=== PATIENT | male | born 1960 | race Caucasian/White ===

== ENCOUNTER 2016-12-12 19:00 | Inpatient (IN) | payer BC ==
[~2016-12-12] VITALS: Ht 172.7 cm; Wt 121.2 kg
[2016-12-12 20:49] VITALS: BP 142/60; PULSE 80; TEMP 98.3
[2016-12-12] MEDS ORDERED: PRAVACHOL 40MG40 MG PO (21:06)
[2016-12-12] MEDS ORDERED: VERAPAMIL180 MG/TAB PO (21:08)
[2016-12-12] MEDS ORDERED: COREG 6.256.25 MG/TA PO (21:10)
[2016-12-12] MEDS ORDERED: CARDURA 2MG2 MG PO (21:11)
[2016-12-12] MEDS ORDERED: LASIX 20MG TABL20 MG PO (21:12)
[2016-12-12] MEDS ORDERED: LIORESAL 1010 MG/TAB PO (21:13)
[2016-12-12] MEDS ORDERED: ASPIRIN 81M81 MG/TA2 PO (21:14)
[2016-12-12] MEDS ORDERED: OXAYDO7.5 MG PO (21:16)
[2016-12-12] MEDS ORDERED: HYZAAR 12.5 MG-1 TAB PO (21:18)
[2016-12-12] MEDS ORDERED: HCTZ 25MG TAB25 MG PO (21:18)
[2016-12-12] MEDS ORDERED: TENORMIN 2525 MG/TAB PO (21:19)
[2016-12-12] MEDS ORDERED: VOLTAREN 50MG T50 MG PO (21:21)
[2016-12-12] MEDS ORDERED: LOVENOX 4040 MG/0.4 SQ (21:22)
[2016-12-12] MEDS ORDERED: ROXICODONE 55 MG/TAB PO (21:23)
[2016-12-12] MEDS ORDERED: FLAGYL 500500 MG/100 IV (21:24)
[2016-12-12] MEDS ORDERED: CIPROFLOXA400 MG/202 IV (21:25)
[2016-12-12] MEDS ORDERED: ZOFRAN INJ4 MG/2 ML IV (21:26)
[2016-12-12] MEDS ORDERED: REGLAN 10M10 MG/2 ML IV (21:27)
[2016-12-12] MEDS ORDERED: DILAUDID 2MG/2 MG/M1 IV (21:28)
[2016-12-13 02:36] VITALS: BP 131/50; PULSE 69; TEMP 98.6
[2016-12-13 04:43] VITALS: BP 137/53; PULSE 73; TEMP 98.9
[2016-12-13 07:36] LABS: MEAN CELL VOLUME 98 fl (80.0-100.0); MEAN CORPUSCULAR HGB CONC 32 g/dl (33.0-37.0); PLATELET COUNT 334 K/mm3 (130-400); RED BLOOD COUNT 2.94 M/mm3 (4.20-5.60); REDCELL DISTRIBUTION WIDTH-CV 13.2 % (11.5-14.5); WHITE BLOOD COUNT 10.3 K/mm3 (4.8-10.8)
[2016-12-13 07:38] LABS: HEMATOCRIT 28.9 % (42.0-52.0); HEMOGLOBIN 9.2 g/dl (13.5-18.0); MEAN CORPUSCULAR HEMOGLOBIN 31 pg (27.0-31.0)
[2016-12-13 07:55] LABS: CALCIUM 8.6 mg/dL (8.4-10.2); CREATININE, serum 0.97 mg/dL (0.66-1.25); MAGNESIUM 1.8 mg/dL (1.6-2.3); PHOSPHOROUS 4.4 mg/dL (2.5-4.5)
[2016-12-13 10:29] VITALS: BP 106/41; PULSE 57; TEMP 96.8
[2016-12-13 13:38] VITALS: BP 104/46; PULSE 76; TEMP 98.1
[2016-12-13 22:33] VITALS: BP 102/48; PULSE 52; TEMP 98.2
[2016-12-14 02:12] VITALS: BP 112/42; PULSE 55; TEMP 98.3
[2016-12-14 05:11] VITALS: BP 112/50; PULSE 53; TEMP 98.1
[2016-12-14 10:14] VITALS: BP 95/45; PULSE 49; TEMP 98
[2016-12-14 13:36] VITALS: BP 109/45; PULSE 44
[2016-12-14 15:02] LABS: MEAN CELL VOLUME 98 fl (80.0-100.0); MEAN CORPUSCULAR HGB CONC 32 g/dl (33.0-37.0); MEAN PLATELET VOLUME 10.5 fl (7.4-10.4); PLATELET COUNT 376 K/mm3 (130-400); RED BLOOD COUNT 3.08 M/mm3 (4.20-5.60); WHITE BLOOD COUNT 10.3 K/mm3 (4.8-10.8)
[2016-12-14 15:07] LABS: HEMATOCRIT 30.3 % (42.0-52.0); HEMOGLOBIN 9.7 g/dl (13.5-18.0); MEAN CORPUSCULAR HEMOGLOBIN 31 pg (27.0-31.0)
[2016-12-14 15:25] LABS: CALCIUM 8.9 mg/dL (8.4-10.2); CREATININE, serum 0.9 mg/dL (0.66-1.25)
[2016-12-14 16:02] LABS: ADD PATHOLOGY DIFF REVIEW YES; BAND 16 % (0-10); EOSINOPHIL 4 % (0-4); METAMYELOCYTE 2 % (0-0); NEUTROPHILS 58 % (42.0-75.2); PLATELET ESTIMATE NORMAL (NORMAL); TOTAL CELLS COUNTED 100
[2016-12-14 17:41] VITALS: BP 117/53; PULSE 47; TEMP 98.4
[2016-12-14 22:25] VITALS: BP 110/56; PULSE 52; TEMP 98.2
[2016-12-15 05:30] VITALS: BP 126/50; PULSE 56; TEMP 98.1
[2016-12-15 07:30] VITALS: BP 129/59; PULSE 59; TEMP 98
[2016-12-15 08:29] LABS: PATHOLOGY DIFF REVIEW OK
[2016-12-15 08:38] LABS: MEAN CELL VOLUME 100 fl (80.0-100.0); MEAN CORPUSCULAR HGB CONC 31 g/dl (33.0-37.0); MEAN PLATELET VOLUME 10.5 fl (7.4-10.4); PLATELET COUNT 361 K/mm3 (130-400); RED BLOOD COUNT 2.99 M/mm3 (4.20-5.60); REDCELL DISTRIBUTION WIDTH-CV 12.8 % (11.5-14.5); WHITE BLOOD COUNT 8.7 K/mm3 (4.8-10.8)
[2016-12-15 08:57] LABS: HEMATOCRIT 29.9 % (42.0-52.0); HEMOGLOBIN 9.4 g/dl (13.5-18.0); MEAN CORPUSCULAR HEMOGLOBIN 31 pg (27.0-31.0)
[2016-12-15 09:10] LABS: ADJUSTED CALCIUM 9.6 mg/dL (8.4-10.2); ALBUMIN 2.9 gm/dL (3.5-5.0); BILIRUBIN,TOTAL 0.4 mg/dL (0.0-1.0); CALCIUM 8.7 mg/dL (8.4-10.2); CREATININE, serum 0.85 mg/dL (0.66-1.25); POTASSIUM 3.6 mmol/L (3.4-5.0)
[2016-12-15 10:29] VITALS: BP 118/37; PULSE 60; TEMP 97.9
[2016-12-15 13:16] VITALS: BP 117/56; PULSE 57; TEMP 97.7
[2016-12-15 17:31] VITALS: BP 136/53; PULSE 62; TEMP 98.1
[2016-12-15 22:17] VITALS: BP 149/53; PULSE 61; TEMP 98.5
[2016-12-16 06:03] VITALS: BP 145/51; PULSE 61; TEMP 98.6
[2016-12-16 10:00] VITALS: BP 168/70; PULSE 66; TEMP 98.2
[2016-12-16 13:38] VITALS: BP 154/49; PULSE 66; TEMP 98.5
[2016-12-16 17:23] VITALS: BP 142/55; PULSE 54; TEMP 98.1
[2016-12-16 20:38] VITALS: BP 150/52; PULSE 59; TEMP 98.2
[2016-12-17 01:36] VITALS: BP 150/53; PULSE 60; TEMP 98.5
[2016-12-17 05:04] VITALS: BP 158/64; PULSE 62; TEMP 98.3
[2016-12-17 07:53] LABS: BASO # 0.1 (0.0-0.2); BASO % 0.7 % (0.0-2.0); EOS # 0.3 (0.0-0.7); EOS % 2.7 % (0-4.0); GRAN # 5.3 (1.4-6.5); GRAN % 57.7 % (42.2-75.2); LYMPH # 2.3 (1.2-3.4); LYMPH % 24.5 % (20.0-51.0); MEAN CELL VOLUME 100 fl (80.0-100.0); MEAN CORPUSCULAR HGB CONC 32 g/dl (33.0-37.0); MEAN PLATELET VOLUME 10.8 fl (7.4-10.4); MONO % 10.4 % (1.7-9.3); PLATELET COUNT 379 K/mm3 (130-400); RED BLOOD COUNT 2.79 M/mm3 (4.20-5.60); REDCELL DISTRIBUTION WIDTH-CV 12.8 % (11.5-14.5); WHITE BLOOD COUNT 9.2 K/mm3 (4.8-10.8)
[2016-12-17 08:00] LABS: ADJUSTED CALCIUM 9.7 mg/dL (8.4-10.2); ALBUMIN 2.8 gm/dL (3.5-5.0); BILIRUBIN,TOTAL 0.3 mg/dL (0.0-1.0); CALCIUM 8.7 mg/dL (8.4-10.2); CREATININE, serum 0.79 mg/dL (0.66-1.25); POTASSIUM 3.8 mmol/L (3.4-5.0); TOTAL PROTEIN 5.6 gm/dL (6.4-8.2)
[2016-12-17 08:19] LABS: HEMATOCRIT 27.9 % (42.0-52.0); HEMOGLOBIN 8.9 g/dl (13.5-18.0); MEAN CORPUSCULAR HEMOGLOBIN 32 pg (27.0-31.0)
[2016-12-17 10:00] VITALS: BP 153/49; PULSE 63; TEMP 98.1
[2016-12-17] MEDS ORDERED: CLEOCIN HCL300 MG PO (10:39)
[2016-12-17] MEDS ORDERED: CIPRO 500MG TA500 MG PO (10:39)
[2016-12-17] MEDS ORDERED: FERROUS SU325 MG/TAB PO (10:46)
[2016-12-17] MEDS ORDERED: VERAPAMIL180 MG/TAB PO (10:49)
[2016-12-17] MEDS ORDERED: HCTZ 25MG TAB25 MG PO (10:50)
[2016-12-17 12:42] VITALS: BP 160/58; PULSE 66; TEMP 98.6
[2016-12-17] MEDS ORDERED: PERCOCET 325 MG1 TAB PO (16:40)
== END 2016-12-17 19:44 | disposition home health service (06) | DRG 862 ==
LOC: SURG 19:00
PROVIDERS: Nurse Practitioner Family; Physician Assistant; Surgery
PROC: 02HV33Z Insertion of Infusion Device into Superior Vena Cava, Percutaneous Approach (ICD-10-PCS; principal; 2016-12-15)
DX: T81.4XXA Infection following a procedure, initial encounter (principal); E43 Unspecified severe protein-calorie malnutrition; Z68.41 Body mass index [BMI] 40.0-44.9, adult; L03.311 Cellulitis of abdominal wall; E66.01 Morbid (severe) obesity due to excess calories; I10 Essential (primary) hypertension; Z87.891 Personal history of nicotine dependence; Z93.3 Colostomy status; D50.0 Iron deficiency anemia secondary to blood loss (chronic); G89.29 Other chronic pain; B95.7 Other staphylococcus as the cause of diseases classified elsewhere; E87.70 Fluid overload, unspecified; G47.33 Obstructive sleep apnea (adult) (pediatric)
CPT/HCPCS: 99223; 99231-AI; 99232-AI; C1751; J0696; J1170; J1644; J1650; J2543; J3370; J7030; J7050; Q9967

== ENCOUNTER → 2016-12-18 | Outpatient (CLI) | payer BC ==
[~2016-12-18] MED LIST: ASPIRIN 81M81 MG/TA2 PO; CARDURA 2MG2 MG PO; CIPRO 500MG TA500 MG PO; CIPROFLOXA400 MG/202 IV; CLEOCIN HCL300 MG PO; COREG 6.256.25 MG/TA PO; DILAUDID 2MG/2 MG/M1 IV; FERROUS SU325 MG/TAB PO; FLAGYL 500500 MG/100 IV; HCTZ 25MG TAB25 MG PO; HYZAAR 12.5 MG-1 TAB PO; LASIX 20MG TABL20 MG PO; LIORESAL 1010 MG/TAB PO; LOVENOX 4040 MG/0.4 SQ; OXAYDO7.5 MG PO; PERCOCET 325 MG1 TAB PO; PRAVACHOL 40MG40 MG PO; REGLAN 10M10 MG/2 ML IV; ROXICODONE 55 MG/TAB PO; ROXICODONE15 MG PO; TENORMIN 2525 MG/TAB PO; VERAPAMIL180 MG/TAB PO; VOLTAREN 50MG T50 MG PO; ZOFRAN INJ4 MG/2 ML IV
== END ==
LOC: WCC 13:30
DX: T81.31XA Disruption of external operation (surgical) wound, not elsewhere classified, initial encounter (principal); Z93.2 Ileostomy status; Y83.2 Surgical operation with anastomosis, bypass or graft as the cause of abnormal reaction of the patient, or of later complication, without mention of misadventure at the time of the procedure
CPT/HCPCS: G0463

== ENCOUNTER → 2016-12-21 | Outpatient (CLI) | payer BC | LOC: WCC 08:31 | DX: Z53.8 Procedure and treatment not carried out for other reasons (principal) ==

== ENCOUNTER → 2016-12-25 | Outpatient (CLI) | payer BC | LOC: WCC 09:20 | DX: T81.31XD Disruption of external operation (surgical) wound, not elsewhere classified, subsequent encounter (principal); E66.01 Morbid (severe) obesity due to excess calories | CPT/HCPCS: G0463 ==

== ENCOUNTER → 2017-01-01 | Outpatient (CLI) | payer BC | LOC: WCC 08:11 | DX: T81.31XD Disruption of external operation (surgical) wound, not elsewhere classified, subsequent encounter (principal); E66.01 Morbid (severe) obesity due to excess calories | CPT/HCPCS: 27510; A6197; G0463 ==

== ENCOUNTER → 2017-01-06 | Outpatient (CLI) | payer BC | LOC: WCC 08:11 | DX: T81.31XA Disruption of external operation (surgical) wound, not elsewhere classified, initial encounter (principal); E66.01 Morbid (severe) obesity due to excess calories; K94.29 Other complications of gastrostomy | CPT/HCPCS: G0463 ==

== ENCOUNTER → 2017-01-13 | Outpatient (CLI) | payer BC | LOC: WCC 09:50 | DX: T81.31XD Disruption of external operation (surgical) wound, not elsewhere classified, subsequent encounter (principal) | CPT/HCPCS: 27511; 27517; A6207; A6210; G0463 ==

== ENCOUNTER 2017-01-14 15:12 | Observation (INO) | payer BC ==
[~2017-01-14] VITALS: Ht 172.7 cm; Wt 132.7 kg
[~2017-01-14 15:12] MED LIST changes: -ROXICODONE15 MG PO
[2017-01-14 15:51] LABS: BASO # 0.1 (0.0-0.2); BASO % 0.6 % (0.0-2.0); EOS # 0.2 (0.0-0.7); EOS % 2.7 % (0-4.0); GRAN # 5.3 (1.4-6.5); LYMPH # 2.2 (1.2-3.4); LYMPH % 25.1 % (20.0-51.0); MEAN CELL VOLUME 94 fl (80.0-100.0); MEAN CORPUSCULAR HGB CONC 33 g/dl (33.0-37.0); MEAN PLATELET VOLUME 10.1 fl (7.4-10.4); MONO # 0.9 (0.1-0.6); MONO % 10.3 % (1.7-9.3); PLATELET COUNT 208 K/mm3 (130-400); RED BLOOD COUNT 3.65 M/mm3 (4.20-5.60); REDCELL DISTRIBUTION WIDTH-CV 12.7 % (11.5-14.5); WHITE BLOOD COUNT 8.7 K/mm3 (4.8-10.8)
[2017-01-14 15:52] LABS: HEMATOCRIT 34.2 % (42.0-52.0); HEMOGLOBIN 11.2 g/dl (13.5-18.0); MEAN CORPUSCULAR HEMOGLOBIN 31 pg (27.0-31.0)
[2017-01-14 16:04] LABS: ADJUSTED CALCIUM 9.6 mg/dL (8.4-10.2); ALBUMIN 4.1 gm/dL (3.5-5.0); BILIRUBIN,TOTAL 0.8 mg/dL (0.0-1.0); C-REACTIVE PROTEIN 1.4 mg/dL (0.0-0.9); CALCIUM 9.7 mg/dL (8.4-10.2); CREATININE, serum 0.69 mg/dL (0.66-1.25); POTASSIUM 4.2 mmol/L (3.4-5.0); TOTAL PROTEIN 7.5 gm/dL (6.4-8.2)
[2017-01-14] MEDS ORDERED: ROXICODONE15 MG PO (16:28)
[2017-01-14] MEDS ORDERED: LASIX 20MG TABL20 MG PO (18:15)
[2017-01-14] MEDS ORDERED: HYZAAR 12.5 MG-1 TAB PO (18:15)
[2017-01-14 18:50] VITALS: BP 139/60; PULSE 55; TEMP 98.7
[2017-01-14 21:44] VITALS: BP 141/55; PULSE 51; TEMP 98.8
[2017-01-14 23:57] VITALS: BP 110/36; PULSE 53; TEMP 98
[2017-01-15 04:13] VITALS: BP 125/48; PULSE 68; TEMP 97
[2017-01-15 07:01] LABS: HEMATOCRIT 31.8 % (42.0-52.0); HEMOGLOBIN 10.3 g/dl (13.5-18.0)
[2017-01-15 10:14] VITALS: BP 115/53; PULSE 50; TEMP 98.2
== END 2017-01-15 11:42 | disposition home or self-care (01) ==
LOC: COL.ER 15:12 → SURG 16:23
PROVIDERS: Family Medicine; Surgery
DX: K94.01 Colostomy hemorrhage (principal)
CPT/HCPCS: G0378; J7030

== ENCOUNTER → 2017-01-22 | Outpatient (CLI) | payer BC ==
[~2017-01-22] MED LIST changes: +ROXICODONE15 MG PO
== END ==
LOC: WCC 09:58
DX: T81.31XA Disruption of external operation (surgical) wound, not elsewhere classified, initial encounter (principal); E66.01 Morbid (severe) obesity due to excess calories
CPT/HCPCS: 27517; A6207

== ENCOUNTER → 2017-02-01 | Outpatient (CLI) | payer BC | LOC: WCC 08:30 | DX: T81.31XA Disruption of external operation (surgical) wound, not elsewhere classified, initial encounter (principal); E66.01 Morbid (severe) obesity due to excess calories | CPT/HCPCS: 17717; A6212; G0463 ==

== ENCOUNTER → 2017-02-16 | Outpatient (CLI) | payer BC | LOC: WCC 08:40 | DX: S31.109A Unspecified open wound of abdominal wall, unspecified quadrant without penetration into peritoneal cavity, initial encounter (principal) | CPT/HCPCS: 17717; 27515; A6212; G0463 ==

== ENCOUNTER → 2017-03-15 | Outpatient (CLI) | payer BC | LOC: WCC 08:12 | DX: Z09 Encounter for follow-up examination after completed treatment for conditions other than malignant neoplasm (principal); E66.01 Morbid (severe) obesity due to excess calories | CPT/HCPCS: G0463 ==